=== PATIENT | female | born 1970 | race Caucasian/White ===

== ENCOUNTER 2017-11-29 08:46 | Emergency (ER) | payer OTHER ==
[2017-11-29] MEDS: DIPHTH/TET/ACEL PERTUSS (ADULT) 0.5 ML VIAL IM* (09:18)
== END 2017-11-29 10:09 | disposition home or self-care (01) ==
LOC: FTE 08:46
DX: S61.256A Open bite of right little finger without damage to nail, initial encounter (principal); W54.0XXA Bitten by dog, initial encounter; Y92.9 Unspecified place or not applicable; Z23 Encounter for immunization
CPT/HCPCS: 10060; 90471; 90715; 99283-25

== ENCOUNTER 2018-08-30 01:23 | Emergency (ER) | payer OTHER ==
[2018-08-30 05:00] LABS: URINE BLOOD (Dip) POC 3+ (NEGATIVE); URINE GLUCOSE (Dip) POC Negative (NEGATIVE); URINE KETONES (Dip) POC Negative (NEGATIVE); URINE LEUKOCYTE EST (Dip) POC Negative (NEGATIVE); URINE NITRITE (Dip) POC Negative (NEGATIVE); URINE TOTAL PROTEIN POC 1+ (NEGATIVE)
[2018-08-30 05:00] LABS: URINE PH (Dip) POC >=9.0 (5.0-8.5)
[2018-08-30] MEDS ORDERED: KETOROLAC 30 MG INJ IM (05:17)
[2018-08-30] MEDS: traMADol 50 MG TAB PO (05:32)
== END 2018-08-30 05:55 | disposition home or self-care (01) ==
LOC: FTE 01:23
DX: R51 Headache (principal); I10 Essential (primary) hypertension
CPT/HCPCS: 70450; 81003; 81025; 99284-25